=== PATIENT | male | born 1950 | race Caucasian/White ===

== ENCOUNTER → 2017-05-13 | Outpatient (CLI) | payer MEDICARE ==
[~2017-05-13] MED LIST: AMBIEN10 M1 PO; AMMONIUM LACTA385 GM TP; APLISOL5 TUB UNIT IC; ASPIRIN ADULT L81 M1 PO; COZAAR100 MG PO; DEMADEX20 M1 PO; DULCOLAX10 M1 R; FLEET ENEMA 13133 ML R; METFORMIN1000 MG PO; MILK OF MA400 MG/5 M PO; NEURONTIN300 MG PO; NICODERM CQ1 EAC2 TD; NOVOLOG MI100 UNIT/2 SQ; PRAVACHOL40 MG PO; PROAIR HFA8.5 GM INH; REGLAN5 MG PO; TOPROL XL50 M1 PO; TRAD5TAB1 PO; Zofran4 MG SL
== END | disposition home or self-care (01) ==
LOC: CT 04-20 12:43
DX: C34.31 Malignant neoplasm of lower lobe, right bronchus or lung (principal); R91.8 Other nonspecific abnormal finding of lung field; R59.9 Enlarged lymph nodes, unspecified; J90 Pleural effusion, not elsewhere classified; I51.7 Cardiomegaly; M19.91 Primary osteoarthritis, unspecified site

== ENCOUNTER 2017-05-20 18:11 | Inpatient (IN) | payer MEDICARE ==
[~2017-05-20] VITALS: Ht 190.5 cm; Wt 103.5 kg
--- NOTE | ~2017-05-20 | EKG ---
[place], [place] ELECTROCARDIOGRAM REPORT NAME: RACHEL BANERJEE UNIT #: [id number] ROOM: 526 DOCTOR: CARLOS DYE,EMILY BIRTHDATE: [birth year] DOS: 05/20/2017 TIME: 1920 hours. IMPRESSION: 1. Underlying atrial fibrillation versus sinus rhythm. 2. Intraventricular conduction delay versus ventricular pacing. EMILY GONZALEZ MD CM:EKGRPT:ELECTROCARDIOGRAM REPORT [id number] EMILY GONZALEZ MD
[2017-05-20 18:11] VITALS: BP 138/73
[2017-05-20] MEDS ORDERED: AMBIEN10 M1 PO (18:42)
[2017-05-20] MEDS ORDERED: AMMONIUM LACTA385 GM TP (18:43)
[2017-05-20] MEDS ORDERED: APLISOL5 TUB UNIT IC (18:43)
[2017-05-20] MEDS ORDERED: DULCOLAX10 M1 R (18:44)
[2017-05-20] MEDS ORDERED: ASPIRIN ADULT L81 M1 PO (18:44)
[2017-05-20] MEDS ORDERED: FLEET ENEMA 13133 ML R (18:45)
[2017-05-20] MEDS ORDERED: METFORMIN1000 MG PO (18:46)
[2017-05-20] MEDS ORDERED: COZAAR100 MG PO (18:46)
[2017-05-20] MEDS ORDERED: MILK OF MA400 MG/5 M PO (18:46)
[2017-05-20] MEDS ORDERED: NEURONTIN300 MG PO (18:47)
[2017-05-20] MEDS ORDERED: NICODERM CQ1 EAC2 TD (18:47)
[2017-05-20] MEDS ORDERED: PRAVACHOL40 MG PO (18:48)
[2017-05-20] MEDS ORDERED: NOVOLOG MI100 UNIT/2 SQ (18:48)
[2017-05-20] MEDS ORDERED: REGLAN5 MG PO (18:49)
[2017-05-20] MEDS ORDERED: TOPROL XL50 M1 PO (18:49)
[2017-05-20] MEDS ORDERED: TRAD5TAB1 PO (18:50)
[2017-05-20] MEDS ORDERED: DEMADEX20 M1 PO (18:50)
[2017-05-20] MEDS ORDERED: PROAIR HFA8.5 GM INH (18:52)
[2017-05-20] MEDS ORDERED: Zofran4 MG SL (18:53)
[2017-05-20 19:03] LABS: BASO % 0.1 % (0.0-1.0); EOS # 0.6 10*3/uL (0.0-0.4); EOS % 3.2 % (1.0-4.0); HEMATOCRIT 35.3 % (42.0-52.0); HEMOGLOBIN 11.7 g/dl (14.0-18.0); LYMPH % 5.4 % (27.0-41.0); MEAN CELL VOLUME 83.6 fl (80.0-94.0); MEAN CORPUSCULAR HGB 27.7 pg (27.0-31.0); MEAN CORPUSCULAR HGB CONC 33.1 g/dl (33.0-37.0); MEAN PLATELET VOLUME 9.2 fl (9.6-12.3); MONO # 1.4 10*3/uL (0.1-1.0); MONO % 7.2 % (3.0-9.0); NEUT # 16.1 10*3/uL (2.3-7.9); NEUT % 83.6 % (47.0-73.0); PLATELET COUNT AUTOMATED 254 10*3/uL (130-400); RED BLOOD COUNT 4.22 10*6/uL (4.50-5.90); RED CELL DISTRI WIDTH 15.4 % (0-14.5); WHITE BLOOD COUNT 19.2 10*3/uL (4.8-10.8)
[2017-05-20 19:22] LABS: ALBUMIN 3.5 gm/dl (3.1-4.5); CREATININE 1.75 mg/dL (0.70-1.30); POTASSIUM 5.6 mmol/L (3.5-5.1); TOTAL PROTEIN 9.9 gm/dL (6.4-8.2); TROPONIN I 0.015 ng/ml (<0.045)
[2017-05-20 19:36] VITALS: BP 141/79
[2017-05-20 20:14] LABS: BILIRUBIN NEGATIVE (NEGATIVE); BLOOD NEGATIVE (NEGATIVE); CLARITY CLEAR (CLEAR); COLOR YELLOW (YELLOW); GLUCOSE 1+ (NEGATIVE); KETONE NEGATIVE (NEGATIVE); LEUKO ESTERASE NEGATIVE (NEGATIVE); NITRITE NEGATIVE (NEGATIVE); UROBILINOGEN 0.2 E.U./dl (0.2-1.0)
[2017-05-20 20:26] LABS: BACTERIA 2+; RBC 0-2 rbc/hpf (0-2)
[2017-05-21] VITALS: BP 99/60
[2017-05-21 04:10] LABS: HEMATOCRIT 29.8 % (42.0-52.0); HEMOGLOBIN 9.8 g/dl (14.0-18.0); MEAN CELL VOLUME 84.9 fl (80.0-94.0); MEAN CORPUSCULAR HGB 27.9 pg (27.0-31.0); MEAN CORPUSCULAR HGB CONC 32.9 g/dl (33.0-37.0); MEAN PLATELET VOLUME 9.2 fl (9.6-12.3); PLATELET COUNT AUTOMATED 187 10*3/uL (130-400); RED BLOOD COUNT 3.51 10*6/uL (4.50-5.90); RED CELL DISTRI WIDTH 15.5 % (0-14.5); WHITE BLOOD COUNT 15.2 10*3/uL (4.8-10.8)
[2017-05-21 04:22] LABS: INTERNATIONAL NORM RATIO 1.1 (2.0-3.5)
[2017-05-21 04:30] LABS: ALBUMIN 2.6 gm/dl (3.1-4.5); CREATININE 1.58 mg/dL (0.70-1.30); FREE T4 1.13 ng/dl (0.76-1.46); PHOSPHOROUS 3.6 mg/dL (2.5-4.9); POTASSIUM 4.7 mmol/L (3.5-5.1); TOTAL PROTEIN 7.7 gm/dL (6.4-8.2)
[2017-05-21 04:35] LABS: THYROID STIM HORMONE (HS) 1.2 uIU/ml (0.358-4.75)
[2017-05-21 04:42] LABS: MICROCYTOSIS SLIGHT; PLATELET SUFFICIENCY NORMAL (NORMAL); TOTAL CELLS COUNTED 100 #CELLS
[2017-05-21] MEDS ORDERED: ROBITUSSIN-DM 110 ML PO (05:02)
[2017-05-21 08:00] VITALS: BP 100/62
[2017-05-21 09:38] LABS: VITAMIN D, 25-HYDROXY 30.7 ng/mL (30-100)
[2017-05-21 12:00] VITALS: BP 104/50
[2017-05-22] VITALS (7 sets, daily range): BP systolic 86–126; BP diastolic 47–69
[2017-05-22 05:47] LABS: CREATININE 1.67 mg/dL (0.70-1.30); POTASSIUM 4.5 mmol/L (3.5-5.1)
[2017-05-22 05:50] LABS: VANCOMYCIN TROUGH 11.4 ug/mL (10-20)
[2017-05-22 06:04] LABS: HEMATOCRIT 28.4 % (42.0-52.0); HEMOGLOBIN 9.3 g/dl (14.0-18.0); MEAN CELL VOLUME 85.3 fl (80.0-94.0); MEAN CORPUSCULAR HGB 27.9 pg (27.0-31.0); MEAN CORPUSCULAR HGB CONC 32.7 g/dl (33.0-37.0); PLATELET COUNT AUTOMATED 185 10*3/uL (130-400); RED BLOOD COUNT 3.33 10*6/uL (4.50-5.90); RED CELL DISTRI WIDTH 15.4 % (0-14.5); WHITE BLOOD COUNT 17.3 10*3/uL (4.8-10.8)
[2017-05-22 07:10] LABS: TOTAL CELLS COUNTED 100 #CELLS
[2017-05-22 07:11] LABS: PLATELET SUFFICIENCY NORMAL (NORMAL)
[2017-05-23] VITALS: BP 121/80
[2017-05-23 06:02] LABS: BASO % 0.1 % (0.0-1.0); EOS # 0.2 10*3/uL (0.0-0.4); EOS % 1.4 % (1.0-4.0); HEMATOCRIT 27.1 % (42.0-52.0); HEMOGLOBIN 8.7 g/dl (14.0-18.0); LYMPH # 0.8 10*3/uL (1.3-4.4); LYMPH % 6.8 % (27.0-41.0); MEAN CORPUSCULAR HGB 27.6 pg (27.0-31.0); MEAN CORPUSCULAR HGB CONC 32.1 g/dl (33.0-37.0); NEUT # 10.2 10*3/uL (2.3-7.9); NEUT % 83.3 % (47.0-73.0); PLATELET COUNT AUTOMATED 165 10*3/uL (130-400); RED BLOOD COUNT 3.15 10*6/uL (4.50-5.90); RED CELL DISTRI WIDTH 15.4 % (0-14.5); WHITE BLOOD COUNT 12.2 10*3/uL (4.8-10.8)
[2017-05-23 06:29] LABS: CREATININE 1.54 mg/dL (0.70-1.30); PHOSPHOROUS 3.1 mg/dL (2.5-4.9); POTASSIUM 4.3 mmol/L (3.5-5.1)
[2017-05-23 08:00] VITALS: BP 110/70; BP 86/38
[2017-05-23] MEDS ORDERED: PREDNISONE10 MG PO (10:32)
[2017-05-23] MEDS ORDERED: DOXYCYCLINE100 M3 PO (10:32)
== END 2017-05-23 15:49 | DRG 871 ==
LOC: ED 18:11 → EDHOLD 20:02 → 5E 20:02
PROVIDERS: Family Medicine; Internal Medicine Nephrology; Nurse Practitioner Family
DX: A41.9 Sepsis, unspecified organism (principal); J18.9 Pneumonia, unspecified organism; N17.0 Acute kidney failure with tubular necrosis; E43 Unspecified severe protein-calorie malnutrition; C34.91 Malignant neoplasm of unspecified part of right bronchus or lung; E11.65 Type 2 diabetes mellitus with hyperglycemia; D64.9 Anemia, unspecified; J44.0 Chronic obstructive pulmonary disease with (acute) lower respiratory infection; E87.1 Hypo-osmolality and hyponatremia; I25.10 Atherosclerotic heart disease of native coronary artery without angina pectoris; E87.5 Hyperkalemia; I10 Essential (primary) hypertension; E78.5 Hyperlipidemia, unspecified; Z95.1 Presence of aortocoronary bypass graft; Z95.5 Presence of coronary angioplasty implant and graft; Z79.899 Other long term (current) drug therapy; Z79.82 Long term (current) use of aspirin; Z79.4 Long term (current) use of insulin; Z87.891 Personal history of nicotine dependence; Z81.1 Family history of alcohol abuse and dependence; Z95.0 Presence of cardiac pacemaker; Z68.28 Body mass index [BMI] 28.0-28.9, adult

== ENCOUNTER 2017-06-21 03:01 | Inpatient (IN) | payer MEDICARE ==
[2017-06-21] VITALS (8 sets, daily range): BP systolic 100–124; BP diastolic 52–76
[~2017-06-21] VITALS: Ht 190.5 cm; Wt 105.2 kg
[~2017-06-21 03:01] MED LIST changes: +DOXYCYCLINE100 M3 PO; +PREDNISONE10 MG PO; +ROBITUSSIN-DM 110 ML PO
[2017-06-21 04:05] LABS: BASO % 0.3 % (0.0-1.0); EOS # 1.4 10*3/uL (0.0-0.4); EOS % 11.8 % (1.0-4.0); HEMATOCRIT 28.2 % (42.0-52.0); HEMOGLOBIN 8.8 g/dl (14.0-18.0); LYMPH # 1.1 10*3/uL (1.3-4.4); LYMPH % 9.6 % (27.0-41.0); MEAN CELL VOLUME 85.7 fl (80.0-94.0); MEAN CORPUSCULAR HGB 26.7 pg (27.0-31.0); MEAN CORPUSCULAR HGB CONC 31.2 g/dl (33.0-37.0); MEAN PLATELET VOLUME 9.6 fl (9.6-12.3); MONO # 0.8 10*3/uL (0.1-1.0); MONO % 6.9 % (3.0-9.0); NEUT # 8.3 10*3/uL (2.3-7.9); PLATELET COUNT AUTOMATED 338 10*3/uL (130-400); RED BLOOD COUNT 3.29 10*6/uL (4.50-5.90); RED CELL DISTRI WIDTH 15.6 % (0-14.5); WHITE BLOOD COUNT 11.7 10*3/uL (4.8-10.8)
[2017-06-21 04:24] LABS: ALBUMIN 3.1 gm/dl (3.1-4.5); CREATININE 2.38 mg/dL (0.70-1.30); POTASSIUM 5.4 mmol/L (3.5-5.1); TOTAL PROTEIN 8.4 gm/dL (6.4-8.2); TROPONIN I 0.022 ng/ml (<0.045)
[2017-06-21 04:29] LABS: THYROID STIM HORMONE (HS) 1.12 uIU/ml (0.358-4.75)
[2017-06-21 06:28] LABS: BILIRUBIN NEGATIVE (NEGATIVE); BLOOD 3+ (NEGATIVE); CLARITY SL CLOUDY (CLEAR); COLOR YELLOW (YELLOW); GLUCOSE NEGATIVE (NEGATIVE); KETONE NEGATIVE (NEGATIVE); LEUKO ESTERASE 2+ (NEGATIVE); NITRITE POSITIVE (NEGATIVE); PH 7.5 (5.0-9.0); UROBILINOGEN 0.2 E.U./dl (0.2-1.0)
[2017-06-21 06:33] LABS: BACTERIA 3+; EPITHELIAL CELLS 0-2
[2017-06-21 06:34] LABS: TRIP PHOS CRYSTALS 2+
[2017-06-22] VITALS (7 sets, daily range): BP systolic 92–157; BP diastolic 52–86
[2017-06-22 06:33] LABS: CREATININE 1.68 mg/dL (0.70-1.30); PHOSPHOROUS 2.6 mg/dL (2.5-4.9); POTASSIUM 5.2 mmol/L (3.5-5.1)
[2017-06-22 06:49] LABS: BASO % 0.1 % (0.0-1.0); EOS # 0.7 10*3/uL (0.0-0.4); EOS % 9.6 % (1.0-4.0); HEMATOCRIT 26.7 % (42.0-52.0); HEMOGLOBIN 8.4 g/dl (14.0-18.0); LYMPH # 0.8 10*3/uL (1.3-4.4); LYMPH % 10.4 % (27.0-41.0); MEAN CELL VOLUME 86.1 fl (80.0-94.0); MEAN CORPUSCULAR HGB 27.1 pg (27.0-31.0); MEAN CORPUSCULAR HGB CONC 31.5 g/dl (33.0-37.0); MEAN PLATELET VOLUME 9.4 fl (9.6-12.3); MONO # 0.8 10*3/uL (0.1-1.0); MONO % 11.1 % (3.0-9.0); NEUT % 68.4 % (47.0-73.0); PLATELET COUNT AUTOMATED 277 10*3/uL (130-400); RED CELL DISTRI WIDTH 15.5 % (0-14.5); WHITE BLOOD COUNT 7.3 10*3/uL (4.8-10.8)
[2017-06-23] VITALS: BP 157/89
[2017-06-23 07:33] LABS: CHLORIDE 108 mmol/L (98-107); CREATININE 1.39 mg/dL (0.70-1.30); POTASSIUM 5.2 mmol/L (3.5-5.1); SODIUM 139 mmol/L (136-145)
[2017-06-23 07:35] LABS: BUN 22 mg/dl (7-24)
[2017-06-23 08:00] VITALS: BP 144/61
[2017-06-23 12:00] VITALS: BP 101/43
[2017-06-23] MEDS ORDERED: AMBIEN10 M1 PO (13:25)
[2017-06-23] MEDS ORDERED: AMINOPHYLLIN200 MG PO (13:25)
[2017-06-23] MEDS ORDERED: MIRALAX POWDER17 G1 PO (13:25)
== END 2017-06-23 17:44 | disposition other institution (70) | DRG 871 ==
LOC: ED 03:01 → EDHOLD 06:12 → ICCU 06:12 → 4E 06:12 → ICCU 06:30 → 4E 11:20
PROVIDERS: Emergency Medicine Emergency Medical Services; Internal Medicine; Internal Medicine Nephrology
DX: A41.9 Sepsis, unspecified organism (principal); N17.0 Acute kidney failure with tubular necrosis; E44.0 Moderate protein-calorie malnutrition; E11.65 Type 2 diabetes mellitus with hyperglycemia; E83.41 Hypermagnesemia; D72.1 Eosinophilia; N39.0 Urinary tract infection, site not specified; E87.1 Hypo-osmolality and hyponatremia; N13.30 Unspecified hydronephrosis; D64.9 Anemia, unspecified; D72.810 Lymphocytopenia; E87.5 Hyperkalemia; K59.00 Constipation, unspecified; E78.5 Hyperlipidemia, unspecified; I10 Essential (primary) hypertension; R65.20 Severe sepsis without septic shock; E66.3 Overweight; E87.8 Other disorders of electrolyte and fluid balance, not elsewhere classified; G47.00 Insomnia, unspecified; N32.0 Bladder-neck obstruction; R33.9 Retention of urine, unspecified; B96.4 Proteus (mirabilis) (morganii) as the cause of diseases classified elsewhere; Z79.82 Long term (current) use of aspirin; Z79.899 Other long term (current) drug therapy; Z85.118 Personal history of other malignant neoplasm of bronchus and lung; Z95.5 Presence of coronary angioplasty implant and graft; Z95.1 Presence of aortocoronary bypass graft; Z87.891 Personal history of nicotine dependence; Z83.3 Family history of diabetes mellitus; Z81.1 Family history of alcohol abuse and dependence; Z79.4 Long term (current) use of insulin; Z78.9 Other specified health status; Z68.28 Body mass index [BMI] 28.0-28.9, adult

== ENCOUNTER 2017-11-27 15:30 | Inpatient (IN) | payer MEDICARE ==
[~2017-11-27] VITALS: Ht 190.5 cm; Wt 110.9 kg
--- NOTE | ~2017-11-27 | CON ---
[place], [place] REPORT OF CONSULTATION NAME: RACHEL BANERJEE UNIT #: [id number] ROOM: 525 DOCTOR: LEIF GUTIÉRREZ MD BIRTHDATE: [birth year] DOS: 11/28/2017 PULMONARY CONSULTATION, EVALUATION AND MANAGEMENT REASON FOR CONSULTATION: Consultation was done for assessment of current abnormal chest x-ray and shortness of breath. HISTORY OF PRESENT ILLNESS: This is a 67-year-old white male who has been known to me during the stay at the [facility]. The patient has been staying there for many months, he is a noted long-term resident. He has been known with history of non-small cell lung cancer, which has been known from the past. The patient has been noted with malignant pleural fluid on the right side with atelectasis of the right lung, receiving immunotherapy at this time under care of medical oncologist in [place], [place], receiving the immunotherapy every 2 weeks. The patient had a chest x-ray done at the nursing facility, which has been noted abnormal. The patient's symptoms offered for further assessment. He has been reported with symptoms of shortness of breath with sputum expectoration at this time. The patient usually swallows the sputum. He was also noted with mild increase in shortness breath than usual. Denies symptoms of acute chest pain. Denies symptoms of wheezing or hemoptysis. REVIEW OF SYSTEMS: CONSTITUTIONAL: Fatigue and tiredness noted without symptoms of fever or chills. EYES: Denies burning, redness, or tenderness. EARS, NOSE, THROAT SYMPTOMS: Denies sore throat, hoarseness, otalgia or postnasal drainage. CARDIOVASCULAR: Denies angina pain, edema or pain in the lower extremities. GASTROINTESTINAL: Denies dysphagia, nausea, vomiting, diarrhea, abdominal pain, hematemesis, melena, or hematochezia. GENITOURINARY: Denies dysuria, suprapubic pain or hematuria. MUSCULOSKELETAL SYMPTOMS: No acute joint pain, redness, or tenderness. CENTRAL NERVOUS SYSTEM: Denies any dizziness, headache, diplopia or syncopal episodes. Remaining systems were reviewed, they were noted all negative. PAST MEDICAL HISTORY: Known with history of: 1. Type 2 diabetes mellitus. 2. COPD. 3. Hyperlipidemia. 4. Essential hypertension. 5. Stage 4 non-small cell lung cancer, malignant, pleural fluid in the right side, which has been noted over 6 months ago or more treated with the current immunotherapy. 6. Chronic nicotine dependence. 7. Coronary artery disease. 8. Chronic respiratory failure, use of oxygen supplementation 3-4 liter nasal cannula. [place], [place] REPORT OF CONSULTATION NAME: RACHEL BANERJEE UNIT #: [id number] ROOM: 525 DOCTOR: LEIF GUTIÉRREZ MD BIRTHDATE: [birth year] PAST SURGICAL HISTORY: 1. Coronary artery stent placement. 2. Coronary artery bypass grafting. 3. Thoracentesis noted with malignant pleural fluid on the right side in the past. SOCIAL HISTORY: The patient was noted with history of tobacco use long-term. He has smoked up to 3 packs of cigarettes per day, started at younger age. Currently, smoking a couple of cigarettes a day at this time. The patient does not have any children and is . FAMILY HISTORY: The patient's father at 70 years of complications related to chronic alcoholism. Mother at the age of 8585 years old with history of diabetes mellitus. MEDICATIONS: Currently administered were noted on this admission with use of Lovenox for DVT prophylaxis, Solu-Medrol 40 mg b.i.d., Mucinex 1200 mg p.o. b.i.d., IV vancomycin, cefepime, and Levaquin. DRUG ALLERGIES: Noted as no known drug allergies. PHYSICAL EXAMINATION: GENERAL: A 67-year-old white male, currently noted comfortable without any acute distress. Height of 6 feet 3 inches, weight of 244 pounds, BMI 30.5. VITAL SIGNS: Normal temperature, respirations 18-20, heart rate 96-100, blood pressure 138/79-143/86. The pulse ox saturation noted on 4 liters nasal cannula is 100% saturation. HEENT: Head was atraumatic. Eye nonicterus. NECK: Supple. CARDIOVASCULAR: S1, S2 audible. LUNGS: Mild expiratory wheezing noted on the left chest to auscultation, right lung noted with absent breath sounds. There were no crackles. ABDOMEN: Soft, nontender. Bowel sounds present. EXTREMITIES: Without any acute edema. MUSCULOSKELETAL: No deformity. SKIN: No new lesions or rashes. CENTRAL NERVOUS SYSTEM: Cranial nerves 2-12 intact. No focal deficit. LABORATORY DATA: CBC that was done for this patient on 11/27/2017 admission; WBC count 12.6, hemoglobin 8.4, hematocrit 27.7, platelet count was normal. PT/PTT were noted normal yesterday. CMP that was done yesterday noted normal BUN and creatinine. Albumin 2.6, otherwise normal LFTs. Lactic acid noted 1.6 yesterday. The troponin noted yesterday normal. Second set troponin this morning normal. CMP repeated this morning, normal BUN and creatinine, glucose 224, potassium 5.2. CBC today normal WBC count, hemoglobin 8.7, platelet count 204,000. Review of the chest x-ray showed whiteout of the left lung with a tracheal deviation to the right side. CT of the chest that was done yesterday noted with progression of the occlusion of right main stem bronchus and bronchus intermedius complete occlusion and lymphadenopathy in the right hilar area was also noted. Loculated pleural fluid. The finding was noted with progression [place], [place] REPORT OF CONSULTATION NAME: RACHEL BANERJEE UNIT #: [id number] ROOM: [facility] DOCTOR: TARI GLORIA MD,[facility] BIRTHDATE: [address] scan compared to 11/19/2017. At that time, the lung were noted partially related to current complete atelectasis. IMPRESSION: 1. The patient with current suspicion of pneumonia reported, actually does have progression of the metastatic malignancy with complete atelectasis of the right lung as well. 2. Acute exacerbation of chronic obstructive pulmonary disease noted with wheezing on the left chest auscultation. 3. The patient with chronic low-grade nicotine dependence as well. The patient does not have any signs of severe pneumonia and atelectasis, most likely resulted from progression, other malignancy rather than acute pneumonia. PLAN OF MANAGEMENT: Discontinuation of the very broad-spectrum intravenous antibiotic. Continue the Levaquin as the only antibiotic at this time, should suffice for treatment of the current pneumonia if present. Mostly gram-positive infection for the patient would be considered. Continue Solu-Medrol with exacerbation of chronic obstructive pulmonary disease management. Thoracentesis would not be needed. Bronchoscopy done only if his ____ study for the patient in case of poor response to current treatment for further assessment for any underlying infection. Other usual care, plan of care, medical management. Overall, prognosis remains guarded. Thanks for allowing me to participate in the care of this patient. LEIF MARC MD CM:CONSTR:REPORT OF CONSULTATION 2342 11/29/17 0729 interface
--- NOTE | ~2017-11-27 | PR ---
[place], [place] PROGRESS NOTE NAME: RACHEL BANERJEE UNIT #: [id number] ROOM: 525 DOCTOR: TARI GLORIA MD,LEIF BIRTHDATE: [birth year] DOS: 11/29/2017 SUBJECTIVE: The patient was noted reduction in symptoms of wheezing. Denies acute shortness of breath. Mild cough noted without any sputum expectoration. Denies symptoms of chest pain or hemoptysis. OBJECTIVE: VITAL SIGNS: Normal temperature, respiratory rate 18, heart rate 86, blood pressure 114/87. Pulse ox saturation on 4 L nasal cannula 98% saturation. HEENT: Showed no acute change. NECK: Supple. CARDIOVASCULAR: S1, S2 audible. LUNGS: The patient noted absent wheezing. CHEST: Today's exam on the left chest. Absent breaths in the right side for the patient remains unchanged. ABDOMEN: Soft, nontender. LABORATORY DATA: Blood culture, no bacterial growth from 11/27/2017. Final results are pending. IMPRESSION: 1. Stable respiratory status was noted with resolving acute exacerbation of chronic obstructive pulmonary disease. 2. Chronic atelectasis of the right lung secondary to advanced non-small cell lung cancer with associated pleural fluid without any acute abnormality, questionable pneumonia and/or bronchitis combination. PLAN OF THERAPY: The patient could be discharged on oral Levaquin 5 mg daily for the next few days at least 7 days and tapering dose of prednisone. Other plan of therapy care plan for the patient to be changed based on progression of the illness. LEIF MARC MD CM:PNTRANS [id number] [id number] LEIF GLORIA MD 11/29/172056 interface
--- NOTE | ~2017-11-27 | EKG ---
[place], [place] ELECTROCARDIOGRAM REPORT NAME: RACHEL BANERJEE UNIT #: [id number] ROOM: 525 DOCTOR: TARI GLORIA MD,LEIF BIRTHDATE: [birth year] DOS: 11/27/2017 ELECTROCARDIOGRAM The electrocardiogram was noted with ventricular paced rhythm. The patient's heart rate is 89 beats per minute. Prolonged MI interval was noted. LEIF MACR MD CM:EKGRPT:ELECTROCARDIOGRAM REPORT [id number] LEIF GLORIA MD
[~2017-11-27 15:30] MED LIST changes: +AMINOPHYLLIN200 MG PO; +MIRALAX POWDER17 G1 PO
[2017-11-27 15:31] VITALS: BP 101/48
[2017-11-27 16:24] LABS: BASO % 0.2 % (0.0-1.0); EOS # 1.3 10*3/uL (0.0-0.4); EOS % 10.7 % (1.0-4.0); HEMATOCRIT 27.7 % (42.0-52.0); HEMOGLOBIN 8.4 g/dl (14.0-18.0); LYMPH % 7.8 % (27.0-41.0); MEAN CELL VOLUME 78.9 fl (80.0-94.0); MEAN CORPUSCULAR HGB 23.9 pg (27.0-31.0); MEAN CORPUSCULAR HGB CONC 30.3 g/dl (33.0-37.0); MEAN PLATELET VOLUME 9.4 fl (9.6-12.3); MONO # 0.8 10*3/uL (0.1-1.0); MONO % 6.4 % (3.0-9.0); NEUT # 9.4 10*3/uL (2.3-7.9); NEUT % 74.5 % (47.0-73.0); PLATELET COUNT AUTOMATED 231 10*3/uL (130-400); RED BLOOD COUNT 3.51 10*6/uL (4.50-5.90); RED CELL DISTRI WIDTH 18.1 % (0-14.5); WHITE BLOOD COUNT 12.6 10*3/uL (4.8-10.8)
[2017-11-27 16:33] LABS: ACT PARTIAL THROMBO TIME 25.4 SECONDS (20.8-31.5)
[2017-11-27 16:40] LABS: ALBUMIN 2.6 gm/dl (3.1-4.5); ALKALINE PHOSPHATASE 88 U/L (45-117); BUN 21 mg/dl (7-24); CHLORIDE 103 mmol/L (98-107); CREATININE 1.18 mg/dL (0.70-1.30); LIPASE 131 U/L (73-393); POTASSIUM 4.9 mmol/L (3.5-5.1); SGOT/AST 27 IU/L (3-35); SGPT/ALT 15 U/L (12-78); SODIUM 138 mmol/L (136-145); TOTAL PROTEIN 8.3 gm/dL (6.4-8.2); TROPONIN I < 0.015 ng/ml (<0.045)
[2017-11-27 17:30] VITALS: BP 108/52
[2017-11-27 18:20] VITALS: BP 123/65
[2017-11-27 18:35] VITALS: BP 123/65
[2017-11-27] MEDS ORDERED: CLARITIN10 MG PO (19:57)
[2017-11-27 20:00] VITALS: BP 146/75
[2017-11-27] MEDS ORDERED: TAMSULOSIN HCL0.4 MG PO (20:00)
[2017-11-27] MEDS ORDERED: METOPROLOL TART75 MG PO (20:03)
[2017-11-27] MEDS ORDERED: NICODERM CQ1 EAC2 T (20:03)
[2017-11-27] MEDS ORDERED: GAVILAX238 GM PO (20:04)
[2017-11-27] MEDS ORDERED: PROSCAR5 M1 PO (20:05)
[2017-11-28] VITALS: BP 135/76
[2017-11-28 06:03] LABS: HEMATOCRIT 28.7 % (42.0-52.0); HEMOGLOBIN 8.7 g/dl (14.0-18.0); MEAN CELL VOLUME 78.2 fl (80.0-94.0); MEAN CORPUSCULAR HGB 23.7 pg (27.0-31.0); MEAN CORPUSCULAR HGB CONC 30.3 g/dl (33.0-37.0); MEAN PLATELET VOLUME 9.6 fl (9.6-12.3); PLATELET COUNT AUTOMATED 204 10*3/uL (130-400); RED BLOOD COUNT 3.67 10*6/uL (4.50-5.90); RED CELL DISTRI WIDTH 17.5 % (0-14.5); WHITE BLOOD COUNT 10.4 10*3/uL (4.8-10.8)
[2017-11-28 06:09] LABS: ALBUMIN 2.7 gm/dl (3.1-4.5); ALKALINE PHOSPHATASE 80 U/L (45-117); BUN 21 mg/dl (7-24); CHLORIDE 104 mmol/L (98-107); CREATININE 1.09 mg/dL (0.70-1.30); PHOSPHOROUS 3.5 mg/dL (2.5-4.9); POTASSIUM 5.2 mmol/L (3.5-5.1); SGOT/AST 27 IU/L (3-35); SGPT/ALT 15 U/L (12-78); SODIUM 139 mmol/L (136-145); TOTAL PROTEIN 8.4 gm/dL (6.4-8.2); VANCOMYCIN TROUGH 7.4 ug/mL (10-20)
[2017-11-28 06:21] LABS: ACT PARTIAL THROMBO TIME 27.3 SECONDS (20.8-31.5); INTERNATIONAL NORM RATIO 1.1 (2.0-3.5)
[2017-11-28 06:34] LABS: TOTAL CELLS COUNTED 100 #CELLS
[2017-11-28 06:35] LABS: MICROCYTOSIS SLIGHT; PLATELET SUFFICIENCY NORMAL (NORMAL); ROULEAUX MODERATE
[2017-11-28 08:00] VITALS: BP 138/79
[2017-11-28 12:00] VITALS: BP 129/67
[2017-11-28 16:00] VITALS: BP 143/86
[2017-11-28 20:00] VITALS: BP 151/84
[2017-11-29] VITALS: BP 145/84
[2017-11-29 05:49] LABS: BUN 28 mg/dl (7-24); CHLORIDE 104 mmol/L (98-107); CREATININE 1.09 mg/dL (0.70-1.30); POTASSIUM 4.9 mmol/L (3.5-5.1); SODIUM 137 mmol/L (136-145)
[2017-11-29 06:08] LABS: VANCOMYCIN TROUGH 23.8 ug/mL (10-20)
[2017-11-29 08:00] VITALS: BP 114/87
[2017-11-29] MEDS ORDERED: LEVAQUIN750 M1 PO (11:30)
[2017-11-29 12:00] VITALS: BP 149/77
[2017-11-29] MEDS ORDERED: PREDNISONE10 MG PO (15:08)
[2018-01-13] MEDS ORDERED: FLEET ENEMA 13133 ML R (05:51)
[2018-01-13] MEDS ORDERED: Ipratropium Brom3 ML INH (06:11)
[2018-01-13] MEDS ORDERED: MILK OF MA2400 MG/10 PO (06:13)
[2018-01-16] MEDS ORDERED: SEPTDS PO (12:14)
[2018-01-16] MEDS ORDERED: NYSTOP60 GM T (12:14)
[2018-01-16] MEDS ORDERED: Bactroban Oint22 GM T (12:14)
[2018-01-16] MEDS ORDERED: Humalog SQ (12:14)
== END 2017-11-29 14:00 | DRG 871 ==
LOC: ED 15:30 → EDHOLD 17:14 → 5E 17:35
PROVIDERS: Emergency Medicine; Family Medicine; Internal Medicine
DX: A41.9 Sepsis, unspecified organism (principal); J69.0 Pneumonitis due to inhalation of food and vomit; E43 Unspecified severe protein-calorie malnutrition; L89.152 Pressure ulcer of sacral region, stage 2; J90 Pleural effusion, not elsewhere classified; J96.10 Chronic respiratory failure, unspecified whether with hypoxia or hypercapnia; L89.522 Pressure ulcer of left ankle, stage 2; C34.90 Malignant neoplasm of unspecified part of unspecified bronchus or lung; J44.1 Chronic obstructive pulmonary disease with (acute) exacerbation; J98.11 Atelectasis; L89.892 Pressure ulcer of other site, stage 2; L89.612 Pressure ulcer of right heel, stage 2; J98.4 Other disorders of lung; D50.9 Iron deficiency anemia, unspecified; I25.10 Atherosclerotic heart disease of native coronary artery without angina pectoris; F17.210 Nicotine dependence, cigarettes, uncomplicated; E11.65 Type 2 diabetes mellitus with hyperglycemia; I10 Essential (primary) hypertension; E78.5 Hyperlipidemia, unspecified; G47.00 Insomnia, unspecified; E87.5 Hyperkalemia; Z87.440 Personal history of urinary (tract) infections; Z95.1 Presence of aortocoronary bypass graft; Z95.5 Presence of coronary angioplasty implant and graft; Z95.0 Presence of cardiac pacemaker; Z83.3 Family history of diabetes mellitus; Z81.1 Family history of alcohol abuse and dependence; Z79.82 Long term (current) use of aspirin; Z79.899 Other long term (current) drug therapy; Z68.30 Body mass index [BMI] 30.0-30.9, adult

== ENCOUNTER 2017-12-13 09:35 | Inpatient (IN) | payer MEDICARE ==
[~2017-12-13] VITALS: Ht 190.5 cm; Wt 110.5 kg
[2017-12-13] VITALS (7 sets, daily range): BP systolic 113–181; BP diastolic 54–82
--- NOTE | ~2017-12-13 | PROC NOTE ---
[place], [place] PROCEDURE NOTE NAME: RACHEL BANERJEE [facility] #: [id number] UNIT #: [id number] ROOM: 403 DOCTOR: DELONTE LOOMIS BIRTHDATE: [birth year] DOS: 12/14/2017 MODIFIED BARIUM SWALLOW LOCATION: [facility], room 403, bed 1. ORDERING PHYSICIAN: Dr. Keller. RADIOLOGIST: Dr. Henderson. BACKGROUND INFORMATION: The patient is a 67-year-old male who was seen for a modified barium swallow. This test was ordered due to dysphagia. This patient is a long term resident and was admitted due to suspected aspiration episode. Further medical history includes malignant neoplasm of right bronchus with one session of radiation therapy eight months ago, then immunotherapy after that time, COPD, CAD, and pacemaker. The patient was alert and cooperative for the evaluation. He reported that at the long term he choked with breakfast, then began wheezing and had increased difficulty breathing. The patient reported that this was not an isolated episode. For today's assessment, the patient was alert and able to follow all commands. Congested cough was noted prior to administration of food and liquid items. Oral peripheral examination revealed presence of natural teeth with several teeth missing. Lingual, labial, and buccal skills were within normal limits in terms of strength, range of motion, and coordination. The patient was able to volitionally cough and swallow. He is currently N.P.O. METHODS AND MATERIALS USED FOR THE EXAM: The patient was positioned in the lateral plane and the exam was viewed under fluoroscopy. The patient was presented with a variety of consistencies to assess swallowing skills including applesauce mixed with barium presented in half teaspoon amounts, barium-coated banana and bread taken in bite size pieces and thin liquid barium taken both by cup and straw. ORAL PHASE: Unremarkable. PHARYNGEAL PHASE: Unremarkable. ESOPHAGEAL PHASE: This phase of the swallow was not formally assessed during this exam. IMPRESSIONS AND RECOMMENDATIONS: Based upon assessment results, this 67-year-old patient presents with oral and pharyngeal swallowing skills that are within normal limits. He displayed no penetration or aspiration with any consistency and no significant residue in the pharynx. Recommend a regular diet and thin liquids. Due to his medical status, he is at risk for aspiration. Therefore, he was recommended to use universal safe swallow precautions. He was educated on results and recommendations and verbalized understanding of all information provided. The patient's nurse was also educated and verbalized understanding. Follow up therapy is not warranted at this time. [place], [place] PROCEDURE NOTE NAME: RACHEL BANERJEE UNIT #: [id number] ROOM: [facility] DOCTOR: DELONTE LOOMIS BIRTHDATE: [birth year] Thank you very much for this referral. Should you have any questions regarding this patient, please contact the speech pathologist at [phone]. DELONTE LOOMIS CM:PROCNOTE:PROCEDURE NOTE [id number] DELONTE LOOMIS
--- NOTE | ~2017-12-13 | EKG ---
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
--- NOTE | ~2017-12-13 | EKG ---
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
[~2017-12-13 09:35] MED LIST changes: +CLARITIN10 MG PO; +GAVILAX238 GM PO; +LEVAQUIN750 M1 PO; +METOPROLOL TART75 MG PO; +NICODERM CQ1 EAC2 T; +PROSCAR5 M1 PO; +TAMSULOSIN HCL0.4 MG PO
[2017-12-13] MEDS ORDERED: HUMALOG 751 UNIT/0.0 SC (09:48)
[2017-12-13] MEDS ORDERED: COZAAR100 MG PO (09:52)
[2017-12-13] MEDS ORDERED: TYLENOL325 M1 PO (09:53)
[2017-12-13] MEDS ORDERED: PREDNISONE20 M1 PO (09:54)
[2017-12-13 09:58] LABS: BASO % 0.1 % (0.0-1.0); EOS # 0.5 10*3/uL (0.0-0.4); EOS % 3.2 % (1.0-4.0); HEMATOCRIT 30.5 % (42.0-52.0); HEMOGLOBIN 8.9 g/dl (14.0-18.0); LYMPH # 0.9 10*3/uL (1.3-4.4); LYMPH % 5.6 % (27.0-41.0); MEAN CELL VOLUME 79.6 fl (80.0-94.0); MEAN CORPUSCULAR HGB 23.2 pg (27.0-31.0); MEAN CORPUSCULAR HGB CONC 29.2 g/dl (33.0-37.0); MEAN PLATELET VOLUME 9.4 fl (9.6-12.3); MONO # 0.8 10*3/uL (0.1-1.0); MONO % 4.7 % (3.0-9.0); NEUT # 14.1 10*3/uL (2.3-7.9); PLATELET COUNT AUTOMATED 176 10*3/uL (130-400); RED BLOOD COUNT 3.83 10*6/uL (4.50-5.90); RED CELL DISTRI WIDTH 17.4 % (0-14.5); WHITE BLOOD COUNT 16.4 10*3/uL (4.8-10.8)
[2017-12-13 10:07] LABS: ACT PARTIAL THROMBO TIME 26.3 SECONDS (20.8-31.5)
[2017-12-13 10:15] LABS: ALBUMIN 2.8 gm/dl (3.1-4.5); ALKALINE PHOSPHATASE 70 U/L (45-117); BUN 26 mg/dl (7-24); CHLORIDE 100 mmol/L (98-107); CREATININE 0.97 mg/dL (0.70-1.30); POTASSIUM 4.3 mmol/L (3.5-5.1); SGOT/AST 25 IU/L (3-35); SGPT/ALT 17 U/L (12-78); SODIUM 138 mmol/L (136-145); TOTAL PROTEIN 7.6 gm/dL (6.4-8.2); TROPONIN I 0.025 ng/ml (<0.045)
[2017-12-13] MEDS ORDERED: BACTROBAN NASAL1 GM T (11:17)
[2017-12-13] MEDS ORDERED: ACIDOPHILUS LA1 EACH PO (11:19)
[2017-12-14] VITALS: BP 149/75
[2017-12-14 06:48] LABS: HEMOGLOBIN 8.5 g/dl (14.0-18.0); MEAN CELL VOLUME 77.3 fl (80.0-94.0); MEAN CORPUSCULAR HGB 23.5 pg (27.0-31.0); MEAN CORPUSCULAR HGB CONC 30.4 g/dl (33.0-37.0); MEAN PLATELET VOLUME 9.3 fl (9.6-12.3); PLATELET COUNT AUTOMATED 162 10*3/uL (130-400); RED BLOOD COUNT 3.62 10*6/uL (4.50-5.90); RED CELL DISTRI WIDTH 17.2 % (0-14.5); WHITE BLOOD COUNT 11.2 10*3/uL (4.8-10.8)
[2017-12-14 07:15] LABS: MICROCYTOSIS SLIGHT; TOTAL CELLS COUNTED 100 #CELLS
[2017-12-14 07:16] LABS: PLATELET SUFFICIENCY NORMAL (NORMAL)
[2017-12-14 07:17] LABS: ALBUMIN 2.7 gm/dl (3.1-4.5); ALKALINE PHOSPHATASE 63 U/L (45-117); BUN 24 mg/dl (7-24); CHLORIDE 100 mmol/L (98-107); CREATININE 0.96 mg/dL (0.70-1.30); PHOSPHOROUS 3.1 mg/dL (2.5-4.9); POTASSIUM 4.4 mmol/L (3.5-5.1); SGOT/AST 23 IU/L (3-35); SGPT/ALT 16 U/L (12-78); SODIUM 137 mmol/L (136-145); TOTAL PROTEIN 7.5 gm/dL (6.4-8.2)
[2017-12-14 08:00] VITALS: BP 150/66
[2017-12-14 12:00] VITALS: BP 160/68
[2017-12-14] MEDS ORDERED: CLINDAMYCIN HC300 MG PO (12:11)
[2017-12-14 16:00] VITALS: BP 137/50
[2018-01-13] MEDS ORDERED: FLEET ENEMA 13133 ML R (05:51)
[2018-01-13] MEDS ORDERED: Ipratropium Brom3 ML INH (06:11)
[2018-01-13] MEDS ORDERED: MILK OF MA2400 MG/10 PO (06:13)
[2018-01-16] MEDS ORDERED: Bactroban Oint22 GM T (12:14)
[2018-01-16] MEDS ORDERED: NYSTOP60 GM T (12:14)
[2018-01-16] MEDS ORDERED: SEPTDS PO (12:14)
[2018-01-16] MEDS ORDERED: Humalog SQ (12:14)
== END 2017-12-14 18:30 | disposition other institution (70) | DRG 871 ==
LOC: ED 09:35 → 4E 10:26 → EDHOLD 10:26 → 4E 10:35
PROVIDERS: Emergency Medicine; Internal Medicine
PROC: BD1BYZZ Fluoroscopy of Mouth/Oropharynx using Other Contrast (ICD-10-PCS; principal; 2017-12-14)
DX: A41.9 Sepsis, unspecified organism (principal); J69.0 Pneumonitis due to inhalation of food and vomit; E43 Unspecified severe protein-calorie malnutrition; I25.810 Atherosclerosis of coronary artery bypass graft(s) without angina pectoris; C34.91 Malignant neoplasm of unspecified part of right bronchus or lung; R06.82 Tachypnea, not elsewhere classified; D50.9 Iron deficiency anemia, unspecified; R79.89 Other specified abnormal findings of blood chemistry; E11.65 Type 2 diabetes mellitus with hyperglycemia; E78.5 Hyperlipidemia, unspecified; K59.00 Constipation, unspecified; K21.9 Gastro-esophageal reflux disease without esophagitis; G47.00 Insomnia, unspecified; I10 Essential (primary) hypertension; Z95.5 Presence of coronary angioplasty implant and graft; Z95.1 Presence of aortocoronary bypass graft; Z87.891 Personal history of nicotine dependence; Z83.3 Family history of diabetes mellitus; Z81.1 Family history of alcohol abuse and dependence; Z79.899 Other long term (current) drug therapy; Z79.82 Long term (current) use of aspirin; Z68.30 Body mass index [BMI] 30.0-30.9, adult; Z79.4 Long term (current) use of insulin